=== PATIENT | female | born 1950 | race Caucasian/White ===

== ENCOUNTER 2025-06-18 17:35 | Inpatient (IN) | payer MEDICARE, MEDICAID, SELFPAY ==
[2025-06-18] VITALS (29 sets, daily range): BP systolic 103–139; BP diastolic 55–79; PULSE 63–154; RESP 14–29; TEMP 37; O2SAT 91–99; BMI 22.4
--- NOTE | 2025-06-18 17:53 | EKG_ITS ---
[facility]
--- NOTE | 2025-06-18 17:58 | DI.RAD.S_ITS ---
PROCEDURE: XR CHEST 1V
--- NOTE | 2025-06-18 18:00 | ED_ITS ---
HPI - Arrhythmia/Palpitations
--- NOTE | 2025-06-18 18:00 | ED.ARRPALP ---
HPI - Arrhythmia/Palpitations General Chief Complaint: Arrhythmia/Palpitations Stated Complaint: Elevated heart rate all day Time Seen by Provider: 06/18/25 17:45 History of Present Illness HPI narrative: 75-year-old female comes into the ED from home for evaluation of elevated heart rate, she states this has been ongoing persistent for the past day, she does note that this started when she started using nicotine patches she states that she does this secondary to the fact that she has history of osteoporosis of her neck and left hip. She states that she use this on Sunday night, she states that she has used 3 patches. She also states that yesterday she did drink 1 Amber which she normally does not. She states that since then she has been having some palpitations. But she denies any actual headache visual disturbances chest pain shortness breath fever chills nausea vomiting abdominal pain or any other GI/ symptoms at this time. Related Data Home Medications ?Medication ?Instructions ?Recorded ?Confirmed acetaminophen 500 mg tablet 500 mg PO Q6H PRN 06/16/25 06/16/25 (Tylenol Extra Strength) cholecalciferol (vitamin D3) 50 50 mcg PO DAILY 06/16/25 06/16/25 mcg (2,000 unit) capsule cyanocobalamin (vitamin B-12) 1 ml PO DAILY 06/16/25 06/16/25 1,000 mcg/mL oral drops estradiol 1 mg tablet 1 mg PO DAILY 06/16/25 06/16/25 progesterone micronized 200 mg 200 mg PO DAILY 06/16/25 06/16/25 capsule Allergies Allergy/AdvReac Type Severity Reaction Status Date / Time Sulfa (Sulfonamide Allergy Intermediate Gastrointestinal Verified 06/18/25 17:57 Antibiotics) Upset Review of Systems Review of Systems Narrative: General: Denies fever, chills, weight loss HEENT: Denies headache, eye drainage, eye irritation, head trauma, sore throat, voice change Cardiovascular: Positive palpitations Denies any chest pain, tachycardia Respiratory: Denies any shortness of breath, cough, wheeze, stridor GI/: Denies any abdominal pain, nausea, vomiting, diarrhea, bright red blood per rectum, melanotic stools, urinary frequency, urinary retention, dysuria, hematuria MSK: Denies any joint pain, muscle pains, swelling Skin: Denies any rashes, lesions, discoloration Neuro: Denies any headache, lightheadedness, dizziness, fainting, weakness Psych: Denies SI/HI Patient History Medical History (Updated 06/18/25 @ 21:59 by Allan Johnson DO) Occipital neuralgia Social History Smoking Status: Unknown if ever smoked Exam Narrative Exam Narrative: General: Cooperative, well-developed, not in acute distress HEENT: Normocephalic, atraumatic, PERRLA, normal sclera, eyelids normal Neck: Active full range of motion, atraumatic Chest: Normal to inspection, negative crepitus, no overlying erythema ecchymosis Respiratory: Normal respiratory effort, not in acute respiratory distress, clear to auscultation bilaterally negative cough, wheeze, tachypnea, rhonchi, rales Cardiology: Irregularly irregular negative gallop, murmur, rubs GI/: No tenderness to palpation, soft, non rigid, normal to inspection, exam deferred MSK: Full active range of motion in all 4 extremities, atraumatic, no tenderness to palpation of any bony prominences Skin: No rashes or lesions noted Neuro: Alert awake oriented x3, moves all 4 extremities spontaneously, cranial nerves intact, able to answer all questions appropriately follows commands appropriately Psych: Cooperative, negative suicidal or homicidal ideations Initial Vital Signs Initial Vital Signs: Vital Signs Temperature 98.6 F 06/18/25 17:37 Pulse Rate 121 H 06/18/25 17:37 Respiratory Rate 14 06/18/25 17:37 Blood Pressure 118/70 06/18/25 17:37 Pulse Oximetry 98 06/18/25 17:37 Oxygen Delivery Method Room Air 06/18/25 17:37 Course Orders Ordered: ED Orders 06/18/25 17:58 XR chest 1V Stat 06/18/25 18:05 Complete Blood Count AUTO DIFF Stat Comprehensive Metabolic Panel Stat Lipase Stat Magnesium Stat NT-proBNP (BNP-Adult 18+) Stat PTT Partial Thromboplastin [place] Stat Prothrombin Time INR Stat TSH w/ Reflex to FT4 Stat Troponin I Stat 06/18/25 18:38 EKG-12 Lead Stat 06/18/25 19:16 EKG-12 Lead Stat 06/18/25 21:31 CT angio chest PE protocol Stat 06/18/25 21:42 EKG-12 Lead Stat Acetaminophen (Acetaminophen 325 Mg Tablet) 650 mg PO Q6H PRN PRN Reason: Fever/Mild Pain (1-3) Apixaban (Apixaban 5 Mg Tablet) 5 mg PO BID ELAINE Diltiazem HCl 125 mg/ Sodium (Chloride) 125 mls @ 5 mls/hr IV TITRATE ELAINE; Protocol Naloxone HCl (Naloxone 0.4 Mg/Ml Vial) 0.2 mg IV Q2MIN PRN PRN Reason: Opiate Reversal Ondansetron HCl (Ondansetron 4 Mg/2 Ml Inj) 4 mg IV Q8HR PRN PRN Reason: Nausea And Vomiting Discontinued Medications Diltiazem HCl (Diltiazem 25 Mg/5 Ml Sdv) 15 mg IV NOW ONE Stop: 06/18/25 18:29 Last Admin: 06/18/25 18:50 Dose: 15 mg Documented By: FELIPE Diltiazem HCl (Diltiazem 25 Mg/5 Ml Sdv) 20 mg IV NOW ONE Stop: 06/18/25 19:45 Last Admin: 06/18/25 20:07 Dose: 20 mg Documented By: KIRIT Diltiazem HCl (Diltiazem 30 Mg Tablet) 60 mg PO NOW ONE Stop: 06/18/25 19:59 Last Admin: 06/18/25 20:10 Dose: 60 mg Documented By: KIRIT Sodium Chloride (Normal Saline 0.9%) 1,000 mls @ 1,000 mls/hr IV BOLUS ONE Stop: 06/18/25 18:59 Last Infusion: 06/18/25 20:00 Dose: Infused Documented By: Admin: 06/18/25 18:50 Dose: 1,000 mls/hr Documented By: FELIPE Magnesium Sulfate (Magnesium Sulfate) 2 gm in 50 mls @ 150 mls/hr IV NOW ONE Stop: 06/18/25 20:03 Last Infusion: 06/18/25 20:42 Dose: Infused Documented By: KIRIT Co-signed By: Admin: 06/18/25 20:10 Dose: 150 mls/hr Documented By: KIRIT Co-signed By: JARET Diltiazem HCl 125 mg/ Sodium (Chloride) 125 mls @ 5 mls/hr IV TITRATE ELAINE; Protocol Last Titration: 06/18/25 23:31 Dose: 10 mg/hr, 10 mls/hr Documented By: Admin: 06/18/25 22:11 Dose: 5 mg/hr, 5 mls/hr Documented By: KIRIT Ondansetron HCl (Ondansetron 4 Mg/2 Ml Inj) 4 mg IV NOW ONE Stop: 06/18/25 18:39 Last Admin: 06/18/25 18:50 Dose: 4 mg Documented By: FELIPE Vital Signs Vital signs: Vital Signs - 8 hr 06/18/25 17:37 06/18/25 17:48 06/18/25 17:48 Temperature 98.6 F Pulse Rate 121 H 154 H Respiratory Rate 14 Blood Pressure 118/70 118/70 Pulse Oximetry 98 94 Oxygen Delivery Method Room Air 06/18/25 18:00 06/18/25 18:05 06/18/25 18:05 Temperature Pulse Rate 124 H 124 H Respiratory Rate 17 22 Blood Pressure 114/67 Pulse Oximetry 97 96 Oxygen Delivery Method 06/18/25 18:30 06/18/25 18:30 06/18/25 18:51 Temperature Pulse Rate 124 H 123 H Respiratory Rate 18 17 Blood Pressure 109/64 Pulse Oximetry 97 98 Oxygen Delivery Method 06/18/25 18:51 06/18/25 19:00 06/18/25 19:00 Temperature Pulse Rate 90 Respiratory Rate 16 Blood Pressure 127/60 126/57 L Pulse Oximetry 96 Oxygen Delivery Method 06/18/25 19:16 06/18/25 19:16 06/18/25 19:30 Temperature Pulse Rate 120 H Respiratory Rate 18 Blood Pressure 129/63 117/64 Pulse Oximetry 99 Oxygen Delivery Method 06/18/25 19:30 06/18/25 19:45 06/18/25 19:45 Temperature Pulse Rate 119 H 123 H Respiratory Rate 20 19 Blood Pressure 107/58 L Pulse Oximetry 98 96 Oxygen Delivery Method 06/18/25 20:00 06/18/25 20:00 06/18/25 20:07 Temperature Pulse Rate 63 102 H Respiratory Rate 21 Blood Pressure 130/69 130/69 Pulse Oximetry 97 Oxygen Delivery Method 06/18/25 20:15 06/18/25 20:15 06/18/25 20:30 Temperature Pulse Rate 117 H 117 H Respiratory Rate 24 16 Blood Pressure 127/65 119/55 L Pulse Oximetry 98 95 Oxygen Delivery Method Room Air 06/18/25 20:30 06/18/25 20:30 06/18/25 20:55 Temperature Pulse Rate 116 H 121 H Respiratory Rate 21 20 Blood Pressure 119/55 L Pulse Oximetry 97 97 Oxygen Delivery Method 06/18/25 20:55 06/18/25 21:00 06/18/25 21:00 Temperature Pulse Rate 121 H Respiratory Rate 19 Blood Pressure 103/65 109/64 Pulse Oximetry 96 Oxygen Delivery Method 06/18/25 21:15 06/18/25 21:15 06/18/25 21:30 Temperature Pulse Rate 121 H Respiratory Rate 19 Blood Pressure 103/59 L 117/74 Pulse Oximetry 98 Oxygen Delivery Method 06/18/25 21:30 06/18/25 21:45 06/18/25 21:45 Temperature Pulse Rate 121 H 140 H Respiratory Rate 20 15 Blood Pressure 109/55 L Pulse Oximetry 98 99 Oxygen Delivery Method 06/18/25 22:08 06/18/25 22:10 06/18/25 22:10 Temperature Pulse Rate 102 H 111 H Respiratory Rate 17 Blood Pressure 139/70 Pulse Oximetry 91 99 Oxygen Delivery Method 06/18/25 22:11 06/18/25 22:15 06/18/25 22:15 Temperature Pulse Rate 110 H 109 H Respiratory Rate 15 Blood Pressure 139/70 131/63 Pulse Oximetry 99 Oxygen Delivery Method 06/18/25 22:30 06/18/25 22:30 06/18/25 22:45 Temperature Pulse Rate 140 H 140 H Respiratory Rate 19 19 Blood Pressure 116/67 Pulse Oximetry 98 98 Oxygen Delivery Method 06/18/25 22:45 06/18/25 23:00 Temperature Pulse Rate 140 H Respiratory Rate 21 Blood Pressure 120/79 Pulse Oximetry 98 Oxygen Delivery Method MDM - Arrhythmia/Palpitations Lab Data 06/18/25 18:05 06/18/25 18:05 Labs: Lab Results 06/18/25 Range/Units 18:05 WBC 7.6 (4.5-11.0) X10^3/uL RBC 4.68 (4.0-5.2) X10^6/uL Hgb 14.7 (12.0-16.0) g/dL Hct 42.0 (36-46) % MCV 89.6 (80-100) fL MCH 31.4 (26-34) PG MCHC 35.1 (30-36) % RDW 12.4 (11.6-14.8) % Plt Count 237 (150-400) X10^3/uL Neut % (Auto) 64.4 (50-75) % Lymph % (Auto) 24.0 L (25-40) % [place] % (Auto) 9.5 (3-14) % Eos % (Auto) 1.1 L (2-4) % Baso % (Auto) 1.0 (0-2) % Neut # (Auto) 4900 (5466-3450) /uL Lymph # (Auto) 1800 (5788-6243) /uL [place] # (Auto) 700 (0-900) /uL Eos # (Auto) 100 (0-450) /uL Baso # (Auto) 100 (0-100) /uL PT 11.4 (9.4-12.5) SECONDS INR 1.0 (0.9-1.3) APTT 28 (25.1-36.5) SECONDS Sodium 138 (137-145) mmol/L Potassium 4.1 (3.4-5.1) mmol/L Chloride 109 H (98-107) mmol/L Carbon Dioxide 21 L (22-32) mmol/L BUN 14 (7-17) mg/dL Creatinine 0.74 (0.52-1.04) mg/dL Estimated GFR > 60 (>60) mL/min BUN/Creatinine Ratio 18.9 (6-22) Glucose 93 (70-99) mg/dL Calcium 9.2 (8.4-10.2) mg/dL Magnesium 1.8 (1.6-2.3) mg/dL Total Bilirubin 0.3 (0.2-1.3) mg/dL AST 32 (14-36) IU/L ALT 19 (<35) IU/L Alkaline Phosphatase 74 (38-126) U/L Troponin I < 0.012 (0.01-0.034) ng/mL NT-Pro-B Natriuret Pep 2200 H (<450) pg/mL Total Protein 7.0 (6.3-8.2) g/dL Albumin 4.1 (3.5-5.0) g/dL Globulin 2.9 (1.7-4.1) g/dL Albumin/Globulin Ratio 1.4 (1.0-2.8) Lipase 406 H (23-300) U/L TSH 4.54 (0.47-4.68) uIU/mL Urine Dip Bedside Urine Glucose Negative Bedside Urine Bilirubin - Negative Bedside Urine Ketone - Negative Urine Specific [place] 1.000 Bedside Urine Occult Blood ++ Bedside Urine pH 6 Bedside Urine Protein - Negative Bedside Urine Urobilinogen - Negative Bedside Urine Nitrite - Negative Bedside Urine Leukocytes - Negative Esterase ECG Data Interpretation: EKG interpreted ED physician sinus tachycardia 122 beats per minute QTC 461, right bundle-branch block noted, nonspecific ST changes no STEMI Repeat EKG now showing atrial fibrillation 123 beats per minute QTC 506, QRS 120, occasional PVC noted, nonspecific ST changes no STEMI MDM Narrative Medical decision making narrative: Patient is a 75-year-old female history of osteoarthritis neck and hip states that she has been having palpitations over the past several days states that it started when she started using nicotine patches to help with her arthritic pain. She also states that this is gotten worse after she drank 1 Amber, she denies any headache visual disturbance chest pain shortness breath fever chills nausea vomiting abdominal pain or any other GI/ symptoms at this time. Patient troponin negative EKG nonischemic, did have elevated BNP remainder of her lab work unremarkable, patient does have CHADS-VASc of 3 for age and sex, we will defer anticoagulation at this time to the hospitalist given patient now requiring Cardizem for rate control. Patient has received multiple doses of IV Cardizem and p.o. Cardizem, received 15 mg IV Cardizem 20 mg IV Cardizem and 60 mg p.o. Cardizem, patient initially responded and converted, however patient remaining persistently sinus tachycardic and intermittently in AFib RVR, did have a discussion with Dr. Batista of Cardiology, recommended adding TSH and if unable to control start Cardizem drip and admit. We will order CT PE scan to rule out PE. PE scan negative, patient will be admitted to ICU given need for continued rate control. The patient's management plan was discussed Dr. Nj, who agrees to admit the patient to their service and assumes care of this patient at this time. Full admission orders will be placed by the primary team. Critical Care Time Critical Care Time Critical Care Time: Yes Total Critical Care Time: 35 Attestation: Authorized and Performed by: Allan Johnson DO Total critical care time: Approximately [35] minutes Due to a high probability of clinically significant, life threatening deterioration, the patient required my highest level of preparedness to intervene emergently and I personally spent this critical care time directly and personally managing the patient. This critical care time included obtaining a history; examining the patient; pulse oximetry; ordering and review of studies; arranging urgent treatment with development of a management plan; evaluation of patient's response to treatment; frequent reassessment; and, discussions with other providers. This critical care time was performed to assess and manage the high probability of imminent, life-threatening deterioration that could result in multi-organ failure. It was exclusive of separately billable procedures and treating other patients and teaching time. Please see MDM section and the rest of the note for further information on patient assessment and treatment. Discharge Plan Departure Patient Disposition: Admitted As Inpatient Clinical Impression: Atrial fibrillation Admit Date/Time: 06/18/25 23:24 Admit Provider: Guero Nj
[2025-06-18 18:20] LABS: Add Manual Diff / Slide Review NO; Hematocrit 42.0 % (36-46); Hemoglobin 14.7 g/dL (12.0-16.0); Lymphocytes Absolute Auto 1800 /uL (1100-4500); Mean Corpuscular HGB Conc 35.1 % (30-36); Mean Corpuscular Hemoglobin 31.4 PG (26-34); Mean Corpuscular Volume 89.6 fL (80-100); Platelet Count 237 X10^3/uL (150-400)
[2025-06-18 18:30] LABS: INR 1.0 (0.9-1.3); Prothrombin Time 11.4 SECONDS (9.4-12.5)
[2025-06-18 18:33] LABS: PTT Partial Thromboplastin Tim 28 SECONDS (25.1-36.5)
[2025-06-18 18:34] LABS: Alanine Aminotransferase 19 IU/L (<35); Albumin 4.1 g/dL (3.5-5.0); Albumin Globulin Ratio 1.4 (1.0-2.8); Alkaline Phosphatase 74 U/L (38-126); Blood Urea Nitrogen 14 mg/dL (7-17); Calcium 9.2 mg/dL (8.4-10.2); Carbon Dioxide 21 mmol/L (22-32); Chloride 109 mmol/L (98-107); Estimated Glomerular Filt Rate > 60 mL/min (>60); Globulin 2.9 g/dL (1.7-4.1); Glucose 93 mg/dL (70-99); HEMOLYSIS 16 (0-50); Lipase 406 U/L (23-300); Magnesium 1.8 mg/dL (1.6-2.3); Potassium 4.1 mmol/L (3.4-5.1); Sodium 138 mmol/L (137-145); Total Protein 7.0 g/dL (6.3-8.2)
[2025-06-18 18:46] LABS: NT-proBNP (BNP-Adult 18+) 2200 pg/mL (<450); Troponin I < 0.012 ng/mL (0.01-0.034)
[2025-06-18] MEDS: ONDANSETRON 4 MG/2 ML INJ IV (18:50)
[2025-06-18] MEDS: SODIUM CHLORIDE 0.9% 1,000 ML 1000 ML IV (18:50)
--- NOTE | 2025-06-18 19:25 | PC.NURSE ---
pt lying on stretcher with HOB elevated, denies any c/o or discomfort, HR 120 does feel palpitation, pt's heart rate up after walking to BR
[2025-06-18] MEDS: MAGNESIUM SULFATE 2 GM/50 ML PIGGYBACK IV (20:10)
--- NOTE | 2025-06-18 20:32 | PC.NURSE ---
pt given 2nd dose of cardiziem IV HR down to 84 and then returned to 1177
--- NOTE | 2025-06-18 20:35 | PC.NURSE ---
while given 2nd dose of cardiziem IV pt's HR dropped to 84 and then went back up to 117
[2025-06-18 21:07] LABS: TSH w/ Reflex to FT4 4.54 uIU/mL (0.47-4.68)
--- NOTE | 2025-06-18 21:31 | DI.CT.S_ITS ---
PROCEDURE: CT ANGIO CHEST PE PROTOCOL
--- NOTE | 2025-06-18 21:42 | EKG_ITS ---
[facility]
--- NOTE | 2025-06-18 22:20 | PC.NURSE ---
pt having frequent pauses, at times HR dropping into the 50's then returning to the 140's Dr Elizabeth scales
--- NOTE | 2025-06-18 23:32 | PC.NURSE ---
Attemted IV start x 3 but unsuccessful. Pressure dressing placed at this time to left hand will remove after 20 minutes.
[2025-06-19] VITALS (20 sets, daily range): BP systolic 96–130; BP diastolic 46–75; PULSE 54–119; RESP 16–39; O2SAT 95–98; BMI 22.4; BMI 23.4
--- NOTE | 2025-06-19 00:04 | PC.NURSE ---
Assisted with intake assessment with Dr. Nj on [facility]
--- NOTE | 2025-06-19 01:00 | PC.NURSE ---
pt moved to 12 and placed on a hospital bed, given a sandwich and pudding, warm blankets and lights dimmed for comfort
--- NOTE | 2025-06-19 01:53 | P.HP_ITS ---
History of Present Illness
--- NOTE | 2025-06-19 01:53 | PM.HP.1 ---
History of Present Illness History of Present Illness Date Patient Seen: 06/18/25 Time Patient Seen: 23:53 Chief complaint: Elevated heart rate all day Narrative: 75-year-old female with past medical history of vitamin D deficiency and neuralgia presents with complaint of palpitation. Per the patient report, the patient started to notice palpitation and increased heart rate today. The patient does have a history of tobacco smoking and was applying her nicotine patch when she started to have these episodes. Patient also admits to having 1 yuniel yesterday. Otherwise the patient denies any known history of atrial fibrillation or arrhythmia. The patient also denies any recent fever, chills, nausea, vomiting, diarrhea, chest pain or shortness of breath. In the emergency room, the patient was hemodynamically stable. Labs were relatively benign with normal TSH patient however was in A-fib with RVR. The patient had multiple pushes of diltiazem but remained RVR. Dr. Henderson from cardiology was in our ER and recommended that we admit the patient if the patient heart rate is not controlled with diltiazem. CT scan of the chest with contrast shows no PE. [facility] Medical History (Updated 06/18/25 @ 21:59 by Allan Johnson DO) Occipital neuralgia Social History Smoking Status: Unknown if ever smoked Meds Home Medications and Allergies Home Medications ?Medication ?Instructions ?Recorded ?Confirmed ?Type acetaminophen 500 mg tablet 500 mg PO Q6H PRN 06/16/25 06/16/25 History (Tylenol Extra Strength) cholecalciferol (vitamin D3) 50 50 mcg PO DAILY 06/16/25 06/16/25 History mcg (2,000 unit) capsule cyanocobalamin (vitamin B-12) 1 ml PO DAILY 06/16/25 06/16/25 History 1,000 mcg/mL oral drops estradiol 1 mg tablet 1 mg PO DAILY 06/16/25 06/16/25 History progesterone micronized 200 mg 200 mg PO DAILY 06/16/25 06/16/25 History capsule Allergies Allergy/AdvReac Type Severity Reaction Status Date / Time Sulfa (Sulfonamide Allergy Intermediate Gastrointestinal Verified 06/18/25 17:57 Antibiotics) Upset Review of Systems Review of Systems ROS: Yes All systems reviewed with the patient and are negative except as otherwise documented Exam Vital Signs (past 8 hours): - 06/18/25 18:00 06/18/25 18:05 06/18/25 18:05 Pulse Rate 124 H 124 H Respiratory Rate 17 22 Blood Pressure 114/67 Pulse Oximetry 97 96 Oxygen Delivery Method 06/18/25 18:30 06/18/25 18:30 06/18/25 18:51 Pulse Rate 124 H 123 H Respiratory Rate 18 17 Blood Pressure 109/64 Pulse Oximetry 97 98 Oxygen Delivery Method 06/18/25 18:51 06/18/25 19:00 06/18/25 19:00 Pulse Rate 90 Respiratory Rate 16 Blood Pressure 127/60 126/57 L Pulse Oximetry 96 Oxygen Delivery Method 06/18/25 19:16 06/18/25 19:16 06/18/25 19:30 Pulse Rate 120 H Respiratory Rate 18 Blood Pressure 129/63 117/64 Pulse Oximetry 99 Oxygen Delivery Method 06/18/25 19:30 06/18/25 19:45 06/18/25 19:45 Pulse Rate 119 H 123 H Respiratory Rate 20 19 Blood Pressure 107/58 L Pulse Oximetry 98 96 Oxygen Delivery Method 06/18/25 20:00 06/18/25 20:00 06/18/25 20:07 Pulse Rate 63 102 H Respiratory Rate 21 Blood Pressure 130/69 130/69 Pulse Oximetry 97 Oxygen Delivery Method 06/18/25 20:15 06/18/25 20:15 06/18/25 20:30 Pulse Rate 117 H 117 H Respiratory Rate 24 16 Blood Pressure 127/65 119/55 L Pulse Oximetry 98 95 Oxygen Delivery Method Room Air 06/18/25 20:30 06/18/25 20:30 06/18/25 20:55 Pulse Rate 116 H 121 H Respiratory Rate 21 20 Blood Pressure 119/55 L Pulse Oximetry 97 97 Oxygen Delivery Method 06/18/25 20:55 06/18/25 21:00 06/18/25 21:00 Pulse Rate 121 H Respiratory Rate 19 Blood Pressure 103/65 109/64 Pulse Oximetry 96 Oxygen Delivery Method 06/18/25 21:15 06/18/25 21:15 06/18/25 21:30 Pulse Rate 121 H Respiratory Rate 19 Blood Pressure 103/59 L 117/74 Pulse Oximetry 98 Oxygen Delivery Method 06/18/25 21:30 06/18/25 21:45 06/18/25 21:45 Pulse Rate 121 H 140 H Respiratory Rate 20 15 Blood Pressure 109/55 L Pulse Oximetry 98 99 Oxygen Delivery Method 06/18/25 22:08 06/18/25 22:10 06/18/25 22:10 Pulse Rate 102 H 111 H Respiratory Rate 17 Blood Pressure 139/70 Pulse Oximetry 91 99 Oxygen Delivery Method 06/18/25 22:11 06/18/25 22:15 06/18/25 22:15 Pulse Rate 110 H 109 H Respiratory Rate 15 Blood Pressure 139/70 131/63 Pulse Oximetry 99 Oxygen Delivery Method 06/18/25 22:30 06/18/25 22:30 06/18/25 22:45 Pulse Rate 140 H 140 H Respiratory Rate 19 19 Blood Pressure 116/67 Pulse Oximetry 98 98 Oxygen Delivery Method 06/18/25 22:45 06/18/25 23:00 06/18/25 23:30 Pulse Rate 140 H 143 H Respiratory Rate 21 23 Blood Pressure 120/79 Pulse Oximetry 98 91 Oxygen Delivery Method Oxygen Delivery Method Room Air Narrative Exam Narrative: Physical Exam: GENERAL: The patient is not in any acute distressed. Awake and alert. HEENT: Nonicteric sclerae, PERRLA, EOMI. Oropharynx clear. Moist mucous membranes. Conjunctivae appear well perfused. HEART: tachycardia with irreg irreg rhythm without murmurs. No lower extremities edema. LUNGS: Clear to auscultation bilaterally. No wheezing, crackles or rhonchi ABDOMEN: Soft, positive bowel sounds, nontender. SKIN: No rash, no excessive bruising, petechiae, or purpura. NEUROLOGIC: AxO x 3. Cranial nerves II-XII intact without motor/sensory deficit. Objective Labs 06/18/25 18:05 06/18/25 18:05 Labs: Laboratory Results - last 24 hr 06/18/25 18:05 WBC 7.6 RBC 4.68 Hgb 14.7 Hct 42.0 MCV 89.6 MCH 31.4 MCHC 35.1 RDW 12.4 Plt Count 237 Neut % (Auto) 64.4 Lymph % (Auto) 24.0 L [place] % (Auto) 9.5 Eos % (Auto) 1.1 L Baso % (Auto) 1.0 Neut # (Auto) 4900 Lymph # (Auto) 1800 [place] # (Auto) 700 Eos # (Auto) 100 Baso # (Auto) 100 PT 11.4 INR 1.0 APTT 28 Sodium 138 Potassium 4.1 Chloride 109 H Carbon Dioxide 21 L BUN 14 Creatinine 0.74 Estimated GFR > 60 BUN/Creatinine Ratio 18.9 Glucose 93 Calcium 9.2 Magnesium 1.8 Total Bilirubin 0.3 AST 32 ALT 19 Alkaline Phosphatase 74 Troponin I < 0.012 NT-Pro-B Natriuret Pep 2200 H Total Protein 7.0 Albumin 4.1 Globulin 2.9 Albumin/Globulin Ratio 1.4 Lipase 406 H TSH 4.54 Assessment & Plan Assessment & Plan narrative: New onset of A-fib with RVR. Admit the patient to ICU with telemetry. TSH normal. Will continue diltiazem drip and will start patient on Eliquis as patient denies any prior history of GI bleed or excessive bleeding. Will also obtain echocardiogram in the morning. Neurology. Resume home medication. DVT prophylaxis Eliquis. CODE STATUS full code. Disposition likely home in 1 to 2 days - As the provider of this telehealth evaluation, requested by the patient's evaluating physician, I attest that I introduced myself to the patient, provided my credentials and determined that telemedicine via a real-time, 2 way interactive audio and video platform is an appropriate and effective means of providing this service. - I reviewed the patient's chart and had a discussion with the member of the patient's treatment team. - The patient and I mutually agreed with continuation of this evaluation via telemedicine. The patient consented for the telemedicine evaluation. - This virtual encounter was taken place from [place] by Dr. Guero Nj. The patient was evaluated at [facility]. The encounter was approximately 35 minutes. The nurse was present during the entire time of the encounter and was able assists with the stethoscope to listen to the patients. Time-Based Coding :: [TOTAL MINUTES] spent with patient and on the chart (including review of chart, obtaining history, exam, reviewing outside data, placing orders, documenting exam and treatment plan, and counseling patient) on [DATE].
[2025-06-19] MEDS: APIXABAN 5 MG TABLET PO ×2 (01:59→09:01)
[2025-06-19] MEDS: ACETAMINOPHEN 325 MG TABLET 650 MG PO (05:45)
[2025-06-19 05:52] LABS: Add Manual Diff / Slide Review NO; Hematocrit 39.7 % (36-46); Hemoglobin 13.7 g/dL (12.0-16.0); Lymphocytes Absolute Auto 1900 /uL (1100-4500); Mean Corpuscular HGB Conc 34.6 % (30-36); Mean Corpuscular Hemoglobin 31.3 PG (26-34); Mean Corpuscular Volume 90.6 fL (80-100); Platelet Count 231 X10^3/uL (150-400)
--- NOTE | 2025-06-19 06:02 | PC.NURSE ---
pt continues being unable to sleep given ice packs, states she uses them for her arthritis to help her sleep, pt up to BSC without assistance, no c/o pain or discomfort
[2025-06-19 06:03] LABS: Blood Urea Nitrogen 17 mg/dL (7-17); Calcium 8.4 mg/dL (8.4-10.2); Carbon Dioxide 21 mmol/L (22-32); Chloride 110 mmol/L (98-107); Estimated Glomerular Filt Rate > 60 mL/min (>60); Glucose 110 mg/dL (70-99); HEMOLYSIS 18 (0-50); Potassium 3.9 mmol/L (3.4-5.1); Sodium 137 mmol/L (137-145)
--- NOTE | 2025-06-19 16:05 | P.DS_ITS ---
History of Present Illness
--- NOTE | 2025-06-19 16:05 | PM.DS.IH.1 ---
History of Present Illness History of Present Illness Date Patient Seen: 06/19/25 Time Patient Seen: 08:02 Chief complaint: Elevated heart rate all day Narrative: 75-year-old female with past medical history of vitamin D deficiency and neuralgia presents with complaint of palpitation. Per the patient report, the patient started to notice palpitation and increased heart rate today. The patient does have a history of tobacco smoking and was applying her nicotine patch when she started to have these episodes. Patient also admits to having 1 yuniel yesterday. Otherwise the patient denies any known history of atrial fibrillation or arrhythmia. The patient also denies any recent fever, chills, nausea, vomiting, diarrhea, chest pain or shortness of breath. In the emergency room, the patient was hemodynamically stable. Labs were relatively benign with normal TSH patient however was in A-fib with RVR. The patient had multiple pushes of diltiazem but remained RVR. Dr. Henderson from cardiology was in our ER and recommended that we admit the patient if the patient heart rate is not controlled with diltiazem. CT scan of the chest with contrast shows no PE. Discharge Providers Provider Date of admission: 06/18/25 23:24 Discharge Date: 06/19/25 Primary care physician: Ale Cerda MD Discharge provider: Pipe Burk MD Summary Hospital Course Discharge Diagnosis: 1. Paroxysmal atrial fibrillation, spontaneously converted to normal sinus rhythm 2. Aortic calcification 3. Cervical osteoarthritis with occipital neuralgia 4. Thyroid nodule Hospital Course: The patient was admitted to telemetry and monitor overnight. She spontaneously converted to sinus rhythm. The patient stated a history of recent nicotine patch use as an alternative method of controlling cervical arthritic pain. She also had a single alcoholic beverage the day before onset of symptoms, though normally does not drink alcohol. She additionally takes topical testosterone cream, all potential risk factors for her atrial fibrillation. She had an unremarkable evaluation during hospitalization including normal echocardiography. Her CT angiogram of the chest showed no evidence of pulmonary embolism. On close review of images by this provider she was noted to have aortic calcification. Her [id number] score is for accounting for a 6.7% annual lysed risk of thromboembolism. Therefore, DOAC anticoagulation therapy is recommended. She is additionally provided with as needed metoprolol for recurrent symptoms following discharge. No other issues arose. The patient acknowledged understanding, agreement and appreciation of this plan of care, and agreed to call back with any questions or concerns. Close outpatient follow-up is advised. She notes that she has had a known thyroid nodule and will continued to have this followed through her primary provider. Consider outpatient ZIO patch monitoring for occult symptoms. Status at Discharge Cognitive/behavioral status at discharge: oriented Functional status at discharge: independent ambulation Overall status at discharge: patient is back to baseline Time Spent with Patient Time spent: Greater than 30 minutes Exam Vital Signs (past 8 hours): Oxygen Delivery Method Room Air Narrative Exam Narrative: GENERAL: This is a well-nourished, well-developed patient, in no apparent distress. HEAD: Atraumatic. Normocephalic. No temporal or scalp tenderness. EYES: Pupils equal round and reactive. Extraocular motions intact. No scleral icterus. No injection or drainage. ENT: Mucous membranes pink and moist. NECK: Trachea midline. No JVD, bruits or lymphadenopathy. Supple, nontender, no meningeal signs. CARDIOVASCULAR: Regular rate and rhythm without murmurs, gallops, or rubs. RESPIRATORY: Clear to auscultation. GASTROINTESTINAL: Abdomen soft, non-tender, nondistended. EXTREMITIES: No clubbing, cyanosis, or edema. BACK: Nontender without deformity or crepitance. No flank tenderness. NEUROLOGIC: Alert, oriented, speech fluent, full upper and lower motor strength, no focal deficits evident. DERMATOLOGIC: No rashes or skin lesions. Objective ECG Impression: Atrial fibrillation with rapid ventricular response at 123 beats per minute, right bundle branch block pattern Imaging *: Radiologist's impression: 1. Chest x-ray 06/18/2025: No acute cardiopulmonary abnormality is seen. 2. Chest CT angiography 06/18/2025: No acute pulmonary embolism. No airspace consolidation or pleural effusion. Right thyroid nodule is seen measuring up to 2.3 cm. Consider nonurgent sonographic follow-up. 3. Echocardiogram 06/18/2025: The left ventricle is normal in size and wall thickness. Left ventricular systolic function is normal. The ejection fraction is estimated to be 65-70%. The right ventricle is normal in size and function. No significant valvular pathology seen. The IVC is of normal diameter and collapses greater than 50% with a sniff. This suggests a low right atrial pressure of 3 mm Hg. There is mild luminal irregularity and echogenicity in the abdominal aorta, suggestive of aortic atherosclerotic disease. Labs 06/19/25 05:37 06/19/25 05:37 Labs: Laboratory Results - last 24 hr 06/18/25 06/19/25 18:05 05:37 WBC 7.6 9.3 RBC 4.68 4.38 Hgb 14.7 13.7 Hct 42.0 39.7 MCV 89.6 90.6 MCH 31.4 31.3 MCHC 35.1 34.6 RDW 12.4 12.5 Plt Count 237 231 Neut % (Auto) 64.4 70.4 Lymph % (Auto) 24.0 L 20.3 L Jack % (Auto) 9.5 7.5 Eos % (Auto) 1.1 L 1.2 L Baso % (Auto) 1.0 0.6 Neut # (Auto) 4900 6600 Lymph # (Auto) 1800 1900 Jack # (Auto) 700 700 Eos # (Auto) 100 100 Baso # (Auto) 100 100 PT 11.4 INR 1.0 APTT 28 Sodium 138 137 Potassium 4.1 3.9 Chloride 109 H 110 H Carbon Dioxide 21 L 21 L BUN 14 17 Creatinine 0.74 0.83 Estimated GFR > 60 > 60 BUN/Creatinine Ratio 18.9 20.5 Glucose 93 110 H Calcium 9.2 8.4 Magnesium 1.8 Total Bilirubin 0.3 AST 32 ALT 19 Alkaline Phosphatase 74 Troponin I < 0.012 NT-Pro-B Natriuret Pep 2200 H Total Protein 7.0 Albumin 4.1 Globulin 2.9 Albumin/Globulin Ratio 1.4 Lipase 406 H TSH 4.54 PFSH Medical History Occipital neuralgia Social History household members: significant other Smoking Status: Unknown if ever smoked alcohol intake: current Discharge Plan Discharge Plan Patient Disposition: Home Provider Discharge Comment: Followup with PCP 1 week Discharge orders & Medications Prescriptions: New Eliquis 5 mg tablet 5 mg PO BID Qty: 60 0RF metoprolol tartrate 25 mg tablet 25 mg PO BID PRN (Reason: palpitations) Qty: 12 0RF Eliquis 5 mg Tablet 5 mg PO BID Qty: 60 0RF Continued melatonin 10 mg capsule 10 mg PO BEDTIME estradiol 1 mg tablet 1 mg PO DAILY progesterone micronized 200 mg capsule 200 mg PO DAILY acetaminophen [Tylenol Extra Strength] 500 mg tablet 500 mg PO Q6H PRN (Reason: pain) cholecalciferol (vitamin D3) 50 mcg (2,000 unit) capsule 50 mcg PO DAILY cyanocobalamin (vitamin B-12) 1,000 mcg/mL drops 1 ml PO DAILY Follow up/Referrals: Ale Cerda MD [Primary Care Provider, Family Practice] Visit Report/Discharge Packet Stand Alone Forms: Patient Portal/API, Stroke Signs & Symptoms Discharge Data Primary Care Provider: Ale Cerda Quality VTE Deep Vein Thrombosis/Pulmonary Embolism Present on Admission: No MIPS - Admit I confirm the patient?s Advance Care Plan is present, Code status is documented, Surrogate decision maker is in patient?s record [If Yes, STOP here]: Yes MIPS - Meds 'Current medications' to include all prescriptions, [id number] products, herbals, cannabis/cannabidiol products, and vitamin/mineral/dietary (nutritional) supplements. I have utilized all available resources to obtain, update, or review the patient?s current medications. [If Yes, STOP here]: Yes MIPS - DC The patient has a history of heart transplant or Left Ventricular Assist Device (LVAD). If yes, STOP here.: No The patient has current or prior documentation of left ventricular ejection fraction (LVEF) less than or equal to 40%, or moderate or severely depressed left ventricular systolic function.: No A. The patient was prescribed or already taking an Angiotensin-Converting Enzyme (LEANN) Inhibitor, or Angiotensin Receptor Ben (ARB).: No B. The patient was prescribed or already taking a beta-ben. [If Yes to Both A & B, STOP here]: Yes Patient not prescribed/taking LEANN or ARB, no reason given.: No Patient not prescribed/taking beta-ben, no reason given.: No PROFEE Charge Codes Discharge inpatient/observation: 54975
== END 2025-06-19 16:15 | disposition home or self-care (01) | DRG 310 ==
LOC: ED 21:59 → AC 23:25 → ICU 06-19 08:09
PROVIDERS: Admitting Provider Internal Medicine; Emergency Provider Student in an Organized Health Care Education/Training Program; PCP Family Medicine; Referring Provider Student in an Organized Health Care Education/Training Program; Visit Provider Internal Medicine
DX: I48.0 Paroxysmal atrial fibrillation (principal); I70.0 Atherosclerosis of aorta; M47.812 Spondylosis without myelopathy or radiculopathy, cervical region; M54.81 Occipital neuralgia; E04.1 Nontoxic single thyroid nodule; E55.9 Vitamin D deficiency, unspecified; Z79.890 Hormone replacement therapy; Z88.2 Allergy status to sulfonamides
CPT/HCPCS: 36415; 71045; 71275; 80048; 80053; 81003; 83690; 83735; 83880; 84443; 84484; 85025; 85610; 85730; 93005; 93306; 96361; 96365; 96366; 96367; 96375; 96376; 99284; 99291; J2405; J3475; J7030; J7050; Q9967

== ENCOUNTER → 2025-07-07 09:27 | Outpatient (CLI) | payer MEDICARE, MEDICAID, SELFPAY ==
[2025-06-19 08:00] VITALS: BMI 23.4
[2025-07-07 10:57] LABS: Hemoglobin A1C% w Est Avg Glu 5.2 % (4.0-6.0)
[2025-07-07 11:12] LABS: Cholesterol 171 mg/dL (140-199); HDL Cholesterol 68 mg/dL (40-60); Triglycerides 84 mg/dL (35-150)
[2025-07-07 11:40] LABS: Cortisol AM (Before 10AM) 11.7 ug/dL (4.46-22.7)
== END ==
PROVIDERS: PCP Family Medicine; Referring Provider Family Medicine; Visit Provider Family Medicine
DX: Z13.220 Encounter for screening for lipoid disorders (principal); R73.01 Impaired fasting glucose; R23.2 Flushing; R79.82 Elevated C-reactive protein (CRP)
CPT/HCPCS: 36415; 80061; 82533; 83036; 86140

== ENCOUNTER → 2025-07-16 13:50 | Outpatient (CLI) | payer MEDICARE, MEDICAID, SELFPAY ==
[2025-06-19 08:00] VITALS: BMI 23.4
== END ==
LOC: CAR 13:50
PROVIDERS: PCP Family Medicine; Referring Provider Family Medicine; Visit Provider Family Medicine
DX: I48.91 Unspecified atrial fibrillation (principal); I48.92 Unspecified atrial flutter
CPT/HCPCS: 93242